=== PATIENT | female | born 1980 | race Caucasian/White ===

== ENCOUNTER 2016-10-15 11:14 | Emergency (ER) | payer OTHER ==
[~2016-10-15] VITALS: Ht 170.2 cm; Wt 65.8 kg
[~2016-10-15 11:14] MED LIST: LORA2TAB89 PO
[2016-10-15 11:55] VITALS: BP 121/70
[2016-10-15] MEDS ORDERED: ALPRAZOLAM 0.5 MG TABLET PO ONE (12:30)
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
== END 2016-10-15 12:50 | disposition home or self-care (01) ==
LOC: ER 11:14
DX: F41.9 Anxiety disorder, unspecified (principal); F32.9 Major depressive disorder, single episode, unspecified
CPT/HCPCS: 99284